=== PATIENT | male | born 1990 | race Caucasian/White ===

== ENCOUNTER 2022-12-10 04:45 | Inpatient (IN) | payer MEDICAID, OTHER ==
[~2022-12-10] VITALS: Ht 182.9 cm; Wt 70.8 kg
[2022-12-10 05:45] LABS: BASOPHILS % (AUTO) 1.1 % (0.0-2.0); EOSINOPHILS % (AUTO) 1.6 % (1.0-6.0); HEMATOCRIT 38.1 % (41-53); HEMOGLOBIN 13.1 g/dL (13.5-17.5); LYMPHOCYTES # (AUTO) 1.6 K/uL (1.0-4.8); LYMPHOCYTES % (AUTO) 30.7 % (22.0-44.0); MEAN CORPUSCULAR HEMOGLOBIN 33.5 pg (26.0-34.0); MEAN CORPUSCULAR HGB CONC 34.3 G/dL (31.0-37.0); MEAN CORPUSCULAR VOLUME 98 fL (80-100); MONOCYTES # (AUTO) 0.3 K/uL (0.1-1.0); MONOCYTES % (AUTO) 6.6 % (2.0-9.0); NEUTROPHILS # (AUTO) 3.2 K/uL (1.8-7.7); PLATELET COUNT (AUTO) 255 K/uL (150-450); RED BLOOD CELL COUNT(AUTO) 3.89 MIL/uL (4.50-5.90); RED CELL DISTRIBUTION WIDTH 13.2 % (11.5-14.5)
[2022-12-10] MEDS ORDERED: LORazepam 1 MG TABLET PO ONE (06:00)
[2022-12-10 06:01] LABS: COVID AG,FIA SOURCE NASOPHARYNGEAL
[2022-12-10 06:03] LABS: ANION GAP 9 mmol/L (8-16); CALCIUM, TOTAL 8.5 mg/dL (8.8-10.5); CARBON DIOXIDE 27 mmol/L (22-29); CHLORIDE 101 mmol/L (98-107); CREATININE 1.04 mg/dL (0.60-1.30); GLOMERULAR FILTR. RATE CALC > 60 mL/min (>60); GLUCOSE,RANDOM 125 mg/dL (70-110); POTASSIUM 3.3 mmol/L (3.5-5.1); SODIUM SERUM 137 mmol/L (136-145)
[2022-12-10 06:08] LABS: ALANINE AMINOTRANSFERASE 64 U/L (12-78); ALBUMIN 3.5 g/dL (3.4-5.0); ALKALINE PHOSPHATASE 138 U/L (46-116); ASPARTATE AMINOTRANSFERASE 117 U/L (15-37); BILIRUBIN,TOTAL 0.5 mg/dL (0.1-1.0); TOTAL PROTEIN, SERUM 7.1 g/dL (6.4-8.2)
[2022-12-10 06:27] LABS: AMPHET/METH SCREEN,URINE NEGATIVE (NEGATIVE); BARBITURATE SCREEN, URINE NEGATIVE (NEGATIVE); BENZODIAZEPINES SCREEN,URINE NEGATIVE (NEGATIVE); CANNABINOID SCREEN,URINE POSITIVE (NEGATIVE); COCAINE SCREEN,URINE NEGATIVE (NEGATIVE); METHADONE SCREEN, URINE NEGATIVE (NEGATIVE); OPIATE SCREEN,URINE NEGATIVE (NEGATIVE); PHENCYCLIDINE SCREEN,URINE NEGATIVE (NEGATIVE)
[2022-12-10] MEDS: OLANZapine 5 MG RAPDIS TABLET PO PRN (12:43)
[2022-12-10] MEDS: LORazepam 2 MG TABLET PO PRN ×2 (12:43→23:23)
[2022-12-10] MEDS ORDERED: ALBUTEROL SULFATE HFA 90 MCG/PUFF 8 GM INHALER IH ONE (13:15)
[2022-12-10 15:38] LABS: APPEARANCE,URINE CLEAR (CLEAR); BILIRUBIN,URINE NEGATIVE (NEGATIVE); GLUCOSE, URINE (UA) NEGATIVE (NEGATIVE); KETONES,URINE NEGATIVE (NEGATIVE); LEUKOCYTE ESTERASE ,URINE NEGATIVE (NEGATIVE); NITRATE,URINE NEGATIVE (NEGATIVE); OCCULT BLOOD,URINE NEGATIVE (NEGATIVE); PROTEIN,URINE NEGATIVE (NEGATIVE); SPECIFIC GRAVITIY, URINE 1.007 (1.003-1.030); UROBILINOGEN,URINE <=1.0 mg/dL (<=1.0)
[2022-12-10] MEDS: ZOLPIDEM TARTRATE 10 MG TABLET PO PRN (23:23)
[2022-12-10 23:25] VITALS: BP 144/90
[2022-12-10 23:44] VITALS: BP 144/90
[2022-12-10] MEDS ORDERED: OMEPRAZOLE 20 MG CAPSULE PO PRN (23:45)
[2022-12-10] MEDS ORDERED: CloNIDine HCL 0.1 MG TABLET PO PRN (23:45)
[2022-12-10] MEDS ORDERED: LOPERAMIDE HCL 2 MG CAPSULE PO PRN (23:45)
[2022-12-10] MEDS ORDERED: DOCUSATE SODIUM 100 MG CAPSULE PO PRN (23:45)
[2022-12-10] MEDS ORDERED: ONDANSETRON HCL 4 MG TABLET PO PRN (23:45)
[2022-12-10] MEDS ORDERED: MAGNESIUM HYDROXIDE SUSPENSION 30 ML UDCUP PO PRN (23:45)
[2022-12-10] MEDS ORDERED: IBUPROFEN 600 MG TABLET PO PRN (23:45)
[2022-12-10] MEDS ORDERED: MAG HYDROX/AL HYDROX/SIMETH ES 30 ML SUSPENSION UDCUP PO PRN (23:45)
[2022-12-10] MEDS ORDERED: ACETAMINOPHEN 325 MG TABLET PO PRN (23:45)
[2022-12-10] MEDS ORDERED: PETROLATUM,WHITE 28 GM JELLY TP PRN (23:45)
[2022-12-10] MEDS ORDERED: BACITRACIN 28 GM OINTMENT TP PRN (23:45)
[2022-12-11] MEDS ORDERED: LORazepam 2 MG/ML VIAL IM PRN (08:45)
[2022-12-11] MEDS ORDERED: POTASSIUM CHLORIDE 20 MEQ ER TABLET PO ONE (08:45)
[2022-12-11 08:49] VITALS: BP 149/82
[2022-12-11] MEDS: ALBUTEROL SULFATE HFA 90 MCG/PUFF 8 GM INHALER IH PRN ×2 (12:02→18:12)
[2022-12-11] MEDS: LORazepam 2 MG TABLET PO PRN ×2 (12:04→20:38)
[2022-12-11] MEDS: OLANZapine 5 MG RAPDIS TABLET PO PRN (18:14)
[2022-12-11 20:32] VITALS: BP 135/90
[2022-12-11] MEDS: ZOLPIDEM TARTRATE 10 MG TABLET PO PRN (20:38)
[2022-12-12 07:00] LABS: BASOPHILS % (AUTO) 1.5 % (0.0-2.0); EOSINOPHILS % (AUTO) 8.5 % (1.0-6.0); HEMATOCRIT 37.4 % (41-53); HEMOGLOBIN 12.8 g/dL (13.5-17.5); LYMPHOCYTES % (AUTO) 40.5 % (22.0-44.0); MEAN CORPUSCULAR HEMOGLOBIN 33.8 pg (26.0-34.0); MEAN CORPUSCULAR HGB CONC 34.4 G/dL (31.0-37.0); MEAN CORPUSCULAR VOLUME 98 fL (80-100); MONOCYTES # (AUTO) 0.4 K/uL (0.1-1.0); NEUTROPHILS % (AUTO) 40.5 % (40.0-70.0); PLATELET COUNT (AUTO) 229 K/uL (150-450); RED CELL DISTRIBUTION WIDTH 13.2 % (11.5-14.5)
[2022-12-12 07:25] LABS: ALANINE AMINOTRANSFERASE 56 U/L (12-78); ALBUMIN 3.1 g/dL (3.4-5.0); ALKALINE PHOSPHATASE 107 U/L (46-116); ANION GAP 7 mmol/L (8-16); ASPARTATE AMINOTRANSFERASE 65 U/L (15-37); BILIRUBIN,TOTAL 0.7 mg/dL (0.1-1.0); CALCIUM, TOTAL 8.7 mg/dL (8.8-10.5); CARBON DIOXIDE 28 mmol/L (22-29); CHLORIDE 104 mmol/L (98-107); CREATININE 0.83 mg/dL (0.60-1.30); GLOMERULAR FILTR. RATE CALC > 60 mL/min (>60); GLUCOSE,RANDOM 101 mg/dL (70-110); PHOSPHORUS 4.8 mg/dL (2.5-4.9); POTASSIUM 3.6 mmol/L (3.5-5.1); SODIUM SERUM 139 mmol/L (136-145); TOTAL PROTEIN, SERUM 6.6 g/dL (6.4-8.2)
[2022-12-12] MEDS: ALBUTEROL SULFATE HFA 90 MCG/PUFF 8 GM INHALER IH PRN (10:35)
[2022-12-12] MEDS: LORazepam 2 MG TABLET PO PRN (10:35)
[2022-12-12 12:58] VITALS: BP 139/78
[2022-12-12] MEDS ORDERED: RISP2TAB86 PO (14:14)
[2022-12-12] MEDS: RisperiDONE 2 MG TABLET PO SCH (17:19)
[2022-12-12 22:41] VITALS: BP 125/80
[2022-12-13] MEDS: RisperiDONE 2 MG TABLET PO SCH (08:10)
[2022-12-13 08:54] VITALS: BP 125/88
[2022-12-13] MEDS: ALBUTEROL SULFATE HFA 90 MCG/PUFF 8 GM INHALER IH PRN (10:59)
== END 2022-12-13 11:45 | disposition home or self-care (01) | DRG 754 ==
LOC: EMS 04:45 → 3EI 18:41
PROVIDERS: ADMIT Psychiatry & Neurology Psychiatry; ATTEND Psychiatry & Neurology Psychiatry
DX: F32.9 Major depressive disorder, single episode, unspecified (principal); F25.9 Schizoaffective disorder, unspecified; R45.851 Suicidal ideations; E87.6 Hypokalemia; F10.229 Alcohol dependence with intoxication, unspecified; F12.10 Cannabis abuse, uncomplicated; F17.200 Nicotine dependence, unspecified, uncomplicated; G47.00 Insomnia, unspecified; I10 Essential (primary) hypertension; J44.9 Chronic obstructive pulmonary disease, unspecified; Z20.822 Contact with and (suspected) exposure to COVID-19; Y90.9 Presence of alcohol in blood, level not specified
CPT/HCPCS: 80053; 80307; 81003; 83735; 84100; 85025; 99285; G0480; J3535

== ENCOUNTER 2023-02-13 15:55 | Inpatient (IN) | payer MEDICAID, OTHER ==
[~2023-02-13] VITALS: Ht 182.9 cm; Wt 71.9 kg
[~2023-02-13 15:55] MED LIST: DIVA-112 PO; RISP1TAB98 PO
[2023-02-13] MEDS ORDERED: LORazepam 2 MG TABLET PO ONE (17:15)
[2023-02-13 17:19] LABS: BASOPHILS % (AUTO) 1.4 % (0.0-2.0); EOSINOPHILS % (AUTO) 4.4 % (1.0-6.0); HEMATOCRIT 46.8 % (41-53); HEMOGLOBIN 15.9 g/dL (13.5-17.5); LYMPHOCYTES # (AUTO) 1.6 K/uL (1.0-4.8); LYMPHOCYTES % (AUTO) 33.4 % (22.0-44.0); MEAN CORPUSCULAR HGB CONC 33.9 G/dL (31.0-37.0); MEAN CORPUSCULAR VOLUME 97 fL (80-100); MONOCYTES # (AUTO) 0.6 K/uL (0.1-1.0); MONOCYTES % (AUTO) 12.8 % (2.0-9.0); NEUTROPHILS # (AUTO) 2.3 K/uL (1.8-7.7); PLATELET COUNT (AUTO) 258 K/uL (150-450); RED BLOOD CELL COUNT(AUTO) 4.81 MIL/uL (4.50-5.90)
[2023-02-13 17:27] LABS: ANION GAP 11 mmol/L (8-16); CALCIUM, TOTAL 9.2 mg/dL (8.8-10.5); CARBON DIOXIDE 26 mmol/L (22-29); CHLORIDE 102 mmol/L (98-107); CREATININE 0.93 mg/dL (0.60-1.30); GLOMERULAR FILTR. RATE CALC > 60 mL/min (>60); GLUCOSE,RANDOM 119 mg/dL (70-110); POTASSIUM 3.7 mmol/L (3.5-5.1); SODIUM SERUM 139 mmol/L (136-145)
[2023-02-13 17:34] LABS: ALANINE AMINOTRANSFERASE 26 U/L (12-78); ALKALINE PHOSPHATASE 108 U/L (46-116); ASPARTATE AMINOTRANSFERASE 27 U/L (15-37); BILIRUBIN,TOTAL 0.2 mg/dL (0.1-1.0)
[2023-02-13 18:14] LABS: COVID AG,FIA SOURCE NASOPHARYNGEAL
[2023-02-13] MEDS ORDERED: HALOPERIDOL 5 MG TABLET PO PRN (18:15)
[2023-02-13 18:26] LABS: AMPHET/METH SCREEN,URINE NEGATIVE (NEGATIVE); BARBITURATE SCREEN, URINE NEGATIVE (NEGATIVE); BENZODIAZEPINES SCREEN,URINE NEGATIVE (NEGATIVE); CANNABINOID SCREEN,URINE POSITIVE (NEGATIVE); COCAINE SCREEN,URINE NEGATIVE (NEGATIVE); METHADONE SCREEN, URINE NEGATIVE (NEGATIVE); OPIATE SCREEN,URINE NEGATIVE (NEGATIVE); PHENCYCLIDINE SCREEN,URINE NEGATIVE (NEGATIVE)
[2023-02-13] MEDS: ZOLPIDEM TARTRATE 10 MG TABLET PO PRN (22:15)
[2023-02-13 23:08] VITALS: BP 128/91; PULSE 92; RESP 18; TEMP 97.9
[2023-02-14] MEDS ORDERED: PNEUMOCOCCAL VACCINE POLYVALENT 0.5 ML VIAL [PPSV23] IM. ONE (01:45)
[2023-02-14 08:29] VITALS: BP 130/90; PULSE 80; RESP 17; TEMP 98
[2023-02-14] MEDS: ALBUTEROL SULFATE HFA 90 MCG/PUFF 8 GM INHALER IH PRN ×2 (09:55→20:26)
[2023-02-14] MEDS: LORazepam 2 MG TABLET PO PRN ×2 (09:57→15:36)
[2023-02-14] MEDS: DiphenhydrAMINE HCL 25 MG CAPSULE PO PRN ×2 (10:24→20:26)
[2023-02-14 15:28] VITALS: BP 141/95
[2023-02-14] MEDS: RisperiDONE 1 MG TABLET PO SCH (16:48)
[2023-02-14] MEDS: DIVALPROEX SODIUM 500 MG DR TABLET PO SCH (16:48)
[2023-02-14] MEDS: NICOTINE 21 MG/24 HOUR PATCH TD PRN (20:44)
[2023-02-14] MEDS ORDERED: PETROLATUM,WHITE 28 GM JELLY TP PRN (20:45)
[2023-02-14] MEDS ORDERED: DOCUSATE SODIUM 100 MG CAPSULE PO PRN (20:45)
[2023-02-14] MEDS ORDERED: MAG HYDROX/AL HYDROX/SIMETH ES 30 ML SUSPENSION UDCUP PO PRN (20:45)
[2023-02-14] MEDS ORDERED: CloNIDine HCL 0.1 MG TABLET PO PRN (20:45)
[2023-02-14] MEDS ORDERED: ONDANSETRON HCL 4 MG TABLET PO PRN (20:45)
[2023-02-14] MEDS ORDERED: IBUPROFEN 600 MG TABLET PO PRN (20:45)
[2023-02-14] MEDS ORDERED: MAGNESIUM HYDROXIDE SUSPENSION 30 ML UDCUP PO PRN (20:45)
[2023-02-14] MEDS ORDERED: ACETAMINOPHEN 325 MG TABLET PO PRN (20:45)
[2023-02-14] MEDS ORDERED: OMEPRAZOLE 20 MG CAPSULE PO PRN (20:45)
[2023-02-14] MEDS ORDERED: BENZOCAINE/MENTHOL LOZENGE PO PRN (20:45)
[2023-02-14] MEDS ORDERED: LOPERAMIDE HCL 2 MG CAPSULE PO PRN (20:45)
[2023-02-14] MEDS ORDERED: BACITRACIN 28 GM OINTMENT TP PRN (20:45)
[2023-02-14] MEDS: ZOLPIDEM TARTRATE 10 MG TABLET PO PRN (21:18)
[2023-02-14 22:38] VITALS: BP 134/84; PULSE 75; RESP 17; TEMP 98.8
[2023-02-15 08:28] VITALS: BP 139/88; PULSE 78; RESP 18; TEMP 97.9
[2023-02-15] MEDS: RisperiDONE 1 MG TABLET PO SCH ×2 (08:53→16:31)
[2023-02-15] MEDS: DIVALPROEX SODIUM 500 MG DR TABLET PO SCH ×2 (08:53→16:31)
[2023-02-15] MEDS: ALBUTEROL SULFATE HFA 90 MCG/PUFF 8 GM INHALER IH PRN (12:05)
[2023-02-15] MEDS: LORazepam 2 MG TABLET PO PRN (12:25)
[2023-02-15 20:28] VITALS: BP 120/81; PULSE 82; RESP 19; TEMP 98.1
[2023-02-15] MEDS: ZOLPIDEM TARTRATE 10 MG TABLET PO PRN (20:35)
[2023-02-15] MEDS: DiphenhydrAMINE HCL 25 MG CAPSULE PO PRN (20:35)
[2023-02-15] MEDS: NICOTINE 21 MG/24 HOUR PATCH TD PRN (20:52)
[2023-02-16] MEDS: LORazepam 2 MG TABLET PO PRN ×2 (05:28→20:06)
[2023-02-16] MEDS: ALBUTEROL SULFATE HFA 90 MCG/PUFF 8 GM INHALER IH PRN (05:43)
[2023-02-16] MEDS: DIVALPROEX SODIUM 500 MG DR TABLET PO SCH ×2 (08:31→16:18)
[2023-02-16] MEDS: RisperiDONE 1 MG TABLET PO SCH ×2 (08:31→16:18)
[2023-02-16 16:11] VITALS: BP 110/80; PULSE 80; RESP 18; TEMP 98.1
[2023-02-16 20:16] VITALS: BP 118/83; PULSE 87; RESP 18; TEMP 97.9
[2023-02-16] MEDS: ZOLPIDEM TARTRATE 10 MG TABLET PO PRN (21:01)
[2023-02-17] MEDS: RisperiDONE 1 MG TABLET PO SCH (08:56)
[2023-02-17] MEDS: DIVALPROEX SODIUM 500 MG DR TABLET PO SCH (08:56)
[2023-02-17 09:11] VITALS: BP 110/73; PULSE 81; RESP 17; TEMP 98.8
[2023-02-17] MEDS: NICOTINE 21 MG/24 HOUR PATCH TD PRN (12:34)
== END 2023-02-17 16:46 | disposition home or self-care (01) | DRG 751 ==
LOC: EMS 16:06 → B2S 20:00
PROVIDERS: ADMIT Psychiatry & Neurology Child & Adolescent Psychiatry; ATTEND Psychiatry & Neurology Psychiatry
DX: F33.2 Major depressive disorder, recurrent severe without psychotic features (principal); R45.851 Suicidal ideations; Z20.822 Contact with and (suspected) exposure to COVID-19; F10.10 Alcohol abuse, uncomplicated; F17.210 Nicotine dependence, cigarettes, uncomplicated; F12.10 Cannabis abuse, uncomplicated; F41.9 Anxiety disorder, unspecified; G47.00 Insomnia, unspecified; I10 Essential (primary) hypertension; J44.9 Chronic obstructive pulmonary disease, unspecified; Y90.3 Blood alcohol level of 60-79 mg/100 ml; Z79.899 Other long term (current) drug therapy; Z56.0 Unemployment, unspecified; Z71.41 Alcohol abuse counseling and surveillance of alcoholic; Z71.51 Drug abuse counseling and surveillance of drug abuser; Z71.6 Tobacco abuse counseling
CPT/HCPCS: 80053; 80307; 85025; 87081; 99285; G0480; J3535

== ENCOUNTER 2023-02-27 10:56 | Inpatient (IN) | payer MEDICAID, OTHER ==
[~2023-02-27] VITALS: Ht 182.9 cm; Wt 69.9 kg
[2023-02-27 12:03] LABS: BASOPHILS % (AUTO) 0.6 % (0.0-2.0); EOSINOPHILS % (AUTO) 3.2 % (1.0-6.0); HEMATOCRIT 46.7 % (41-53); HEMOGLOBIN 16.2 g/dL (13.5-17.5); LYMPHOCYTES # (AUTO) 2.1 K/uL (1.0-4.8); LYMPHOCYTES % (AUTO) 27.6 % (22.0-44.0); MEAN CORPUSCULAR HEMOGLOBIN 32.9 pg (26.0-34.0); MEAN CORPUSCULAR HGB CONC 34.8 G/dL (31.0-37.0); MEAN CORPUSCULAR VOLUME 95 fL (80-100); MONOCYTES # (AUTO) 0.8 K/uL (0.1-1.0); NEUTROPHILS # (AUTO) 4.4 K/uL (1.8-7.7); NEUTROPHILS % (AUTO) 58.6 % (40.0-70.0); PLATELET COUNT (AUTO) 294 K/uL (150-450); RED BLOOD CELL COUNT(AUTO) 4.93 MIL/uL (4.50-5.90); RED CELL DISTRIBUTION WIDTH 12.8 % (11.5-14.5)
[2023-02-27 12:11] LABS: COVID AG,FIA SOURCE NASAL SWAB
[2023-02-27 12:11] LABS: ANION GAP 12 mmol/L (8-16); CALCIUM, TOTAL 8.9 mg/dL (8.8-10.5); CARBON DIOXIDE 24 mmol/L (22-29); CHLORIDE 97 mmol/L (98-107); CREATININE 0.86 mg/dL (0.60-1.30); GLOMERULAR FILTR. RATE CALC > 60 mL/min (>60); GLUCOSE,RANDOM 105 mg/dL (70-110); POTASSIUM 3.7 mmol/L (3.5-5.1); SODIUM SERUM 133 mmol/L (136-145)
[2023-02-27 12:17] LABS: ALANINE AMINOTRANSFERASE 41 U/L (12-78); ALBUMIN 3.7 g/dL (3.4-5.0); ALKALINE PHOSPHATASE 97 U/L (46-116); ASPARTATE AMINOTRANSFERASE 37 U/L (15-37); BILIRUBIN,TOTAL 0.3 mg/dL (0.1-1.0); TOTAL PROTEIN, SERUM 7.8 g/dL (6.4-8.2)
[2023-02-27 12:21] LABS: AMPHET/METH SCREEN,URINE POSITIVE (NEGATIVE); BARBITURATE SCREEN, URINE NEGATIVE (NEGATIVE); BENZODIAZEPINES SCREEN,URINE NEGATIVE (NEGATIVE); CANNABINOID SCREEN,URINE NEGATIVE (NEGATIVE); COCAINE SCREEN,URINE NEGATIVE (NEGATIVE); METHADONE SCREEN, URINE NEGATIVE (NEGATIVE); OPIATE SCREEN,URINE NEGATIVE (NEGATIVE); PHENCYCLIDINE SCREEN,URINE NEGATIVE (NEGATIVE)
[2023-02-27] MEDS ORDERED: OLANZapine 5 MG TABLET PO ONE (13:15)
[2023-02-27] MEDS ORDERED: LORazepam 2 MG TABLET PO ONE (13:15)
[2023-02-27] MEDS ORDERED: LORazepam 2 MG TABLET PO PRN (14:45)
[2023-02-27] MEDS ORDERED: ZOLPIDEM TARTRATE 10 MG TABLET PO PRN (14:45)
[2023-02-27] MEDS ORDERED: HALOPERIDOL 5 MG TABLET PO PRN (14:45)
[2023-02-27] MEDS ORDERED: LOPERAMIDE HCL 2 MG CAPSULE PO PRN (15:45)
[2023-02-27] MEDS ORDERED: MAGNESIUM HYDROXIDE SUSPENSION 30 ML UDCUP PO PRN (15:45)
[2023-02-27] MEDS ORDERED: OLANZapine 5 MG RAPDIS TABLET PO PRN (15:45)
[2023-02-27] MEDS ORDERED: DIAZEPAM 10 MG TABLET PO PRN (15:45)
[2023-02-27] MEDS ORDERED: HydrOXYzine PAMOATE 50 MG CAPSULE PO PRN (15:45)
[2023-02-27] MEDS ORDERED: CYANOCOBALAMIN 1,000 MCG/ML VIAL IM ONE (15:45)
[2023-02-27] MEDS ORDERED: PROMETHAZINE HCL 25 MG TABLET PO PRN (15:45)
[2023-02-27] MEDS ORDERED: MAG HYDROX/AL HYDROX/SIMETH ES 30 ML SUSPENSION UDCUP PO PRN (15:45)
[2023-02-27] MEDS ORDERED: ACETAMINOPHEN 325 MG TABLET PO PRN ×2 (15:45→19:15)
[2023-02-27] MEDS ORDERED: GuaiFENesin/D-METHORPHAN [SUGAR-FREE] 200-20MG/10 ML SYRUP UDCUP PO PRN (15:45)
[2023-02-27 16:57] VITALS: BP 127/88; PULSE 100; RESP 18; TEMP 97.7; O2SAT 100
[2023-02-27] MEDS: THIAMINE 100 MG TABLET PO SCH (17:00)
[2023-02-27] MEDS: GABAPENTIN 300 MG CAPSULE PO SCH ×2 (17:00→20:31)
[2023-02-27 17:02] VITALS: BP 127/88; PULSE 100; RESP 18; TEMP 97.7; O2SAT 18
[2023-02-27 18:02] VITALS: BP 114/76; PULSE 100; RESP 19; TEMP 98.1; O2SAT 97
[2023-02-27] MEDS ORDERED: ALBUTEROL SULFATE HFA 90 MCG/PUFF 8 GM INHALER IH PRN (18:45)
[2023-02-27] MEDS ORDERED: PHENYLEPHRINE/SHK LV/MIN OIL/PET 57 GM OINTMENT TP PRN (18:45)
[2023-02-27 19:02] VITALS: BP 117/59; PULSE 100; RESP 18; TEMP 98.1; O2SAT 97
[2023-02-27] MEDS: NICOTINE 14 MG/24 HOUR PATCH TD SCH (19:18)
[2023-02-27 20:00] VITALS: BP 121/62; PULSE 99; RESP 18; TEMP 98; O2SAT 99
[2023-02-27] MEDS ORDERED: PNEUMOCOCCAL VACCINE POLYVALENT 0.5 ML SYRINGE [PPSV23] IM. ONE (20:15)
[2023-02-27] MEDS: MELATONIN 5 MG TABLET PO SCH (20:31)
[2023-02-27] MEDS: DIVALPROEX SODIUM 500 MG ER TABLET PO SCH (20:31)
[2023-02-27] MEDS: OLANZapine 5 MG RAPDIS TABLET PO SCH (20:31)
[2023-02-28] MEDS ORDERED: DIAZEPAM 10 MG TABLET PO PRN (07:00)
[2023-02-28] MEDS ORDERED: MAGNESIUM HYDROXIDE SUSPENSION 30 ML UDCUP PO PRN (07:30)
[2023-02-28] MEDS ORDERED: BACITRACIN 28 GM OINTMENT TP PRN (07:30)
[2023-02-28] MEDS ORDERED: IBUPROFEN 600 MG TABLET PO PRN (07:30)
[2023-02-28] MEDS ORDERED: BENZOCAINE/MENTHOL LOZENGE PO PRN (07:30)
[2023-02-28] MEDS ORDERED: PETROLATUM,WHITE 28 GM JELLY TP PRN (07:30)
[2023-02-28] MEDS ORDERED: MAG HYDROX/AL HYDROX/SIMETH ES 30 ML SUSPENSION UDCUP PO PRN (07:30)
[2023-02-28] MEDS ORDERED: OMEPRAZOLE 20 MG CAPSULE PO PRN (07:30)
[2023-02-28] MEDS ORDERED: LOPERAMIDE HCL 2 MG CAPSULE PO PRN (07:30)
[2023-02-28] MEDS ORDERED: ONDANSETRON HCL 4 MG TABLET PO PRN (07:30)
[2023-02-28] MEDS ORDERED: DOCUSATE SODIUM 100 MG CAPSULE PO PRN (07:30)
[2023-02-28] MEDS ORDERED: CloNIDine HCL 0.1 MG TABLET PO PRN (07:30)
[2023-02-28 08:00] VITALS: BP 109/65; PULSE 75; RESP 17; TEMP 97.9; O2SAT 98
[2023-02-28 08:18] VITALS: BP 109/66; PULSE 65; RESP 17; TEMP 97.5; O2SAT 96
[2023-02-28 08:25] LABS: HEMOGLOBIN A1C 5.2 % (3.8-5.6)
[2023-02-28 08:45] LABS: CHOL/HDL RATIO 1.9 (4.2-7.3); FREE T4 (FREE THYROXINE) 0.86 ng/dL (0.76-1.46); THYROID STIMULATING HORMONE 1.5 uIU/mL (0.36-3.74)
[2023-02-28] MEDS: OMEGA-3/DHA/EPA/FISH OIL 1,000 MG CAPSULE PO SCH (09:06)
[2023-02-28] MEDS: NALTREXONE HCL 50 MG TABLET PO SCH (09:07)
[2023-02-28] MEDS: GABAPENTIN 300 MG CAPSULE PO SCH ×4 (09:07→20:32)
[2023-02-28] MEDS: MULTIVITAMINS WITH MINERALS, THERAPEUTIC TABLET PO SCH (09:07)
[2023-02-28] MEDS: DIAZEPAM 10 MG TABLET PO SCH ×4 (09:07→20:31)
[2023-02-28] MEDS: NICOTINE 14 MG/24 HOUR PATCH TD SCH (09:08)
[2023-02-28] MEDS: FOLIC ACID 1 MG TABLET PO SCH (09:08)
[2023-02-28] MEDS: THIAMINE 100 MG TABLET PO SCH ×2 (09:08→16:56)
[2023-02-28 12:00] VITALS: BP 112/68; PULSE 89; RESP 18; TEMP 98; O2SAT 97
[2023-02-28 16:00] VITALS: BP 114/75; PULSE 75; RESP 18; TEMP 97.7; O2SAT 97
[2023-02-28 16:02] VITALS: BP 114/75; PULSE 75; RESP 18; TEMP 97.7; O2SAT 97
[2023-02-28 20:02] VITALS: BP 115/79; PULSE 86; RESP 17; TEMP 97.8; O2SAT 98
[2023-02-28] MEDS: OLANZapine 5 MG RAPDIS TABLET PO SCH (20:32)
[2023-02-28] MEDS: DIVALPROEX SODIUM 500 MG ER TABLET PO SCH (20:32)
[2023-02-28] MEDS: MELATONIN 5 MG TABLET PO SCH (20:32)
[2023-02-28] MEDS ORDERED: NICOTINE 14 MG/24 HOUR PATCH TD SCH (21:00)
[2023-03-01 08:06] LABS: HEPATITIS C AB (EIA) Non Reactive (Non Reactive)
[2023-03-01 08:20] VITALS: BP 122/79; PULSE 80; RESP 19; TEMP 97.6; O2SAT 98
[2023-03-01] MEDS: OMEGA-3/DHA/EPA/FISH OIL 1,000 MG CAPSULE PO SCH (08:58)
[2023-03-01] MEDS: DIAZEPAM 10 MG TABLET PO SCH ×4 (08:58→20:31)
[2023-03-01] MEDS: GABAPENTIN 300 MG CAPSULE PO SCH ×4 (08:58→20:31)
[2023-03-01] MEDS: NALTREXONE HCL 50 MG TABLET PO SCH (08:58)
[2023-03-01] MEDS: MULTIVITAMINS WITH MINERALS, THERAPEUTIC TABLET PO SCH (08:58)
[2023-03-01] MEDS: FOLIC ACID 1 MG TABLET PO SCH (08:58)
[2023-03-01] MEDS: THIAMINE 100 MG TABLET PO SCH ×2 (08:58→16:56)
[2023-03-01] MEDS: NICOTINE 14 MG/24 HOUR PATCH TD SCH (08:59)
[2023-03-01] MEDS: DIVALPROEX SODIUM 500 MG ER TABLET PO SCH (20:32)
[2023-03-01] MEDS: OLANZapine 5 MG RAPDIS TABLET PO SCH (20:32)
[2023-03-01] MEDS: MELATONIN 5 MG TABLET PO SCH (20:32)
[2023-03-01 20:35] VITALS: BP 118/77; PULSE 91; RESP 18; TEMP 97.7; O2SAT 98
[2023-03-01] MEDS: ALBUTEROL SULFATE HFA 90 MCG/PUFF 8 GM INHALER IH PRN (21:02)
[2023-03-02] MEDS ORDERED: DIAZEPAM 5 MG TABLET PO PRN (07:00)
[2023-03-02 08:33] VITALS: BP 113/66; PULSE 89; RESP 18; TEMP 97.9; O2SAT 96
[2023-03-02 08:34] VITALS: BP 113/66; PULSE 89; RESP 18; TEMP 97.9; O2SAT 96
[2023-03-02] MEDS: OMEGA-3/DHA/EPA/FISH OIL 1,000 MG CAPSULE PO SCH (09:24)
[2023-03-02] MEDS: MULTIVITAMINS WITH MINERALS, THERAPEUTIC TABLET PO SCH (09:25)
[2023-03-02] MEDS: NALTREXONE HCL 50 MG TABLET PO SCH (09:25)
[2023-03-02] MEDS: FOLIC ACID 1 MG TABLET PO SCH (09:25)
[2023-03-02] MEDS: THIAMINE 100 MG TABLET PO SCH ×2 (09:25→16:14)
[2023-03-02] MEDS: GABAPENTIN 300 MG CAPSULE PO SCH ×4 (09:25→20:09)
[2023-03-02] MEDS: DIAZEPAM 5 MG TABLET PO SCH ×4 (09:46→20:08)
[2023-03-02] MEDS: NICOTINE 14 MG/24 HOUR PATCH TD SCH (09:47)
[2023-03-02] MEDS ORDERED: LOPERAMIDE HCL 2 MG CAPSULE PO PRN (15:45)
[2023-03-02] MEDS: DIVALPROEX SODIUM 500 MG ER TABLET PO SCH (20:07)
[2023-03-02] MEDS: OLANZapine 5 MG RAPDIS TABLET PO SCH (20:08)
[2023-03-02 20:22] VITALS: BP 119/79; PULSE 94; RESP 18; TEMP 98.6; O2SAT 98
[2023-03-02] MEDS: MELATONIN 5 MG TABLET PO SCH (20:22)
[2023-03-02 20:53] VITALS: BP 120/75; PULSE 95; RESP 18; TEMP 98.5; O2SAT 99
[2023-03-02] MEDS: ACETAMINOPHEN 325 MG TABLET PO PRN (20:53)
[2023-03-03 05:21] VITALS: BP 142/77; PULSE 81; RESP 18; TEMP 97.6; O2SAT 99
[2023-03-03] MEDS: ACETAMINOPHEN 325 MG TABLET PO PRN (05:27)
[2023-03-03] MEDS ORDERED: DIAZEPAM 5 MG TABLET PO PRN (07:00)
[2023-03-03 08:38] VITALS: BP 127/87; PULSE 89; RESP 17; TEMP 97.1; O2SAT 98
[2023-03-03] MEDS: GABAPENTIN 300 MG CAPSULE PO SCH ×4 (09:14→20:51)
[2023-03-03] MEDS: THIAMINE 100 MG TABLET PO SCH ×2 (09:14→16:37)
[2023-03-03] MEDS: OMEGA-3/DHA/EPA/FISH OIL 1,000 MG CAPSULE PO SCH (09:14)
[2023-03-03] MEDS: NALTREXONE HCL 50 MG TABLET PO SCH (09:14)
[2023-03-03] MEDS: FOLIC ACID 1 MG TABLET PO SCH (09:14)
[2023-03-03] MEDS: MULTIVITAMINS WITH MINERALS, THERAPEUTIC TABLET PO SCH (09:14)
[2023-03-03] MEDS: NICOTINE 14 MG/24 HOUR PATCH TD SCH (09:15)
[2023-03-03] MEDS: ALBUTEROL SULFATE HFA 90 MCG/PUFF 8 GM INHALER IH PRN (13:16)
[2023-03-03] MEDS: OLANZapine 5 MG RAPDIS TABLET PO SCH (20:51)
[2023-03-03] MEDS: MELATONIN 5 MG TABLET PO SCH (20:51)
[2023-03-03] MEDS: DIVALPROEX SODIUM 500 MG ER TABLET PO SCH (20:51)
[2023-03-03 21:20] VITALS: BP 142/93; PULSE 99; RESP 18; TEMP 98; O2SAT 100
[2023-03-04 08:56] VITALS: BP 112/90; PULSE 98; RESP 19; TEMP 97.3; O2SAT 98
[2023-03-04] MEDS: OMEGA-3/DHA/EPA/FISH OIL 1,000 MG CAPSULE PO SCH (08:56)
[2023-03-04] MEDS: THIAMINE 100 MG TABLET PO SCH ×2 (08:56→16:46)
[2023-03-04] MEDS: NICOTINE 14 MG/24 HOUR PATCH TD SCH (08:56)
[2023-03-04] MEDS: FOLIC ACID 1 MG TABLET PO SCH (08:56)
[2023-03-04] MEDS: NALTREXONE HCL 50 MG TABLET PO SCH (08:56)
[2023-03-04] MEDS: GABAPENTIN 300 MG CAPSULE PO SCH ×4 (08:56→20:58)
[2023-03-04] MEDS: MULTIVITAMINS WITH MINERALS, THERAPEUTIC TABLET PO SCH (08:56)
[2023-03-04] MEDS: ALBUTEROL SULFATE HFA 90 MCG/PUFF 8 GM INHALER IH PRN (09:32)
[2023-03-04 20:49] VITALS: BP 134/95; PULSE 98; RESP 18; TEMP 97.7; O2SAT 98
[2023-03-04] MEDS: DIVALPROEX SODIUM 500 MG ER TABLET PO SCH (20:58)
[2023-03-04] MEDS: MELATONIN 5 MG TABLET PO SCH (21:03)
[2023-03-04] MEDS: OLANZapine 5 MG RAPDIS TABLET PO SCH (21:04)
[2023-03-05 08:40] VITALS: BP 133/97; PULSE 89; RESP 18; TEMP 98.2; O2SAT 98
[2023-03-05] MEDS: OMEGA-3/DHA/EPA/FISH OIL 1,000 MG CAPSULE PO SCH (08:46)
[2023-03-05] MEDS: GABAPENTIN 300 MG CAPSULE PO SCH ×2 (08:47→13:00)
[2023-03-05] MEDS: FOLIC ACID 1 MG TABLET PO SCH (08:47)
[2023-03-05] MEDS: MULTIVITAMINS WITH MINERALS, THERAPEUTIC TABLET PO SCH (08:47)
[2023-03-05] MEDS: THIAMINE 100 MG TABLET PO SCH (08:47)
[2023-03-05] MEDS: NALTREXONE HCL 50 MG TABLET PO SCH (08:47)
[2023-03-05] MEDS: NICOTINE 14 MG/24 HOUR PATCH TD SCH (08:48)
[2023-03-05] MEDS ORDERED: GABA-1181 PO (10:46)
[2023-03-05] MEDS ORDERED: DIVA500T53 PO (10:47)
[2023-03-05] MEDS ORDERED: OLAN5TAB94 PO (10:47)
[2023-03-05] MEDS ORDERED: MELA5TAB40 PO (10:47)
[2023-03-05] MEDS ORDERED: NALT50TA6 PO (10:48)
== END 2023-03-05 13:47 | disposition home or self-care (01) | DRG 751 ==
LOC: EMS 10:56 → B2S 14:52
PROVIDERS: ADMIT Psychiatry & Neurology Psychiatry; ATTEND Psychiatry & Neurology Psychiatry
DX: F33.2 Major depressive disorder, recurrent severe without psychotic features (principal); R45.851 Suicidal ideations; F25.0 Schizoaffective disorder, bipolar type; F10.20 Alcohol dependence, uncomplicated; F41.9 Anxiety disorder, unspecified; G47.00 Insomnia, unspecified; Z20.822 Contact with and (suspected) exposure to COVID-19; I10 Essential (primary) hypertension; J44.9 Chronic obstructive pulmonary disease, unspecified; F17.210 Nicotine dependence, cigarettes, uncomplicated; F19.10 Other psychoactive substance abuse, uncomplicated; Z59.02 Unsheltered homelessness; Z79.899 Other long term (current) drug therapy
CPT/HCPCS: 80053; 80061; 80307; 83036; 84439; 84443; 85025; 86592; 86803; 87081; 87340; 90732; 99285; G0480; J3420; J3535; Q9967